=== PATIENT | female | born 1985 | race Caucasian/White ===

== ENCOUNTER 2021-02-15 02:17 | Inpatient (IN) | payer OTHER ==
[2021-02-15] MEDS ORDERED: ELECTROLYTE-148 SOLN 500 ML IV ONE (02:50)
[2021-02-15] MEDS ORDERED: CITRIC ACID/SODIUM CITRATE 30 ML UNIT-DOSE CUP PO ONE ×2 (02:50→04:15)
[2021-02-15] MEDS ORDERED: ELECTROLYTE-148 SOLN 1,000 ML IV SCH ×2 (03:20→04:15)
[2021-02-15 03:25] VITALS: BMI 31.4
[2021-02-15 03:29] LABS: BASO % 0.1 % (0-2.0); EOS % 0.8 % (0-4.5); HEMATOCRIT 29.8 % (32.4-45.2); HEMOGLOBIN 9.6 GM/dL (10.7-15.3); MCH 24.4 pg (25.7-33.7); MCHC 32.4 g/dl (32.0-36.0); MEAN CELL VOLUME 75.2 fl (80-96); MEAN PLT VOLUME 7.9 fl (7.5-11.1); MONO % 4.5 % (3.8-10.2); NEUT % 68.6 % (42.8-82.8); PLATELET COUNT 269 10^3/uL (134-434); RBC 3.95 M/mm3 (3.60-5.2); RDW 13.5 % (11.6-15.6); WHITE BLOOD COUNT 7.9 K/mm3 (4.0-10.0)
[2021-02-15 03:40] LABS: INR 0.93 (0.83-1.09); PROTHROMBIN TIME (PATIENT) 10.9 SEC (9.7-13.0)
[2021-02-15 03:49] LABS: BLOOD UREA NITROGEN 6.2 mg/dL (7-18); CALCIUM 8.5 mg/dL (8.5-10.1)
[2021-02-15 03:52] LABS: CREATININE 0.5 mg/dL (0.55-1.3)
[2021-02-15] MEDS ORDERED: diphenhydrAMINE HCL 25 MG CAPSULE (FP) PO PRN (04:14)
[2021-02-15] MEDS ORDERED: BENZOCAINE 28 GM HEMORRHOIDAL OINTMENT RC PRN (04:14)
[2021-02-15] MEDS ORDERED: ACETAMINOPHEN 325 MG TABLET (FP) PO PRN (04:14)
[2021-02-15] MEDS ORDERED: WITCH HAZEL 50% (TUCKS) 40 PAD/JAR PAD TP PRN (04:14)
[2021-02-15] MEDS ORDERED: BENZOCAINE 20% 57 GM BOTTLE TP PRN (04:14)
[2021-02-15] MEDS ORDERED: oxyCODONE HCL 5 MG TABLET PO PRN (04:14)
[2021-02-15] MEDS ORDERED: METHYLERGONOVINE MALEATE 0.2 MG/1 ML AMP IM PRN (04:14)
[2021-02-15 04:44] LABS: HIV INTERPRETATION NEGATIVE (NEGATIVE)
[2021-02-15] MEDS ORDERED: LIGASURE IMPACT TP ONE (04:55)
[2021-02-15] MEDS ORDERED: morphine SULFATE (PF) 1 MG/2 ML SYRINGE EP ONE (05:26)
[2021-02-15] MEDS ORDERED: ONDANSETRON 4 MG/2 ML VIAL IVPUSH PRN (05:26)
[2021-02-15] MEDS ORDERED: morphine SULFATE (PF) 1 MG/2 ML SYRINGE ONE (05:30)
[2021-02-15] MEDS ORDERED: ceFAZolin SODIUM 1 GM VIAL ONE (05:32)
[2021-02-15] MEDS ORDERED: PHENYLEPHRINE HCL 10 MG/1 ML SINGLE DOSE VIAL ONE (05:44)
[2021-02-15] MEDS ORDERED: OXYTOCIN 10 UNIT/ML 10ML MDV ONE (05:53)
[2021-02-15 06:43] LABS: CORD HCO3 22.7 mmHg (20-29); CORD PCO2 42.9 mmHg (30-78); CORD pH 7.342 (7.14-7.44)
[2021-02-15] MEDS ORDERED: OXYTOCIN 20 UNITS in 0.9% NS 20 UNIT/1,000 ML INFUS.BAG IV ONE (07:26)
[2021-02-15] MEDS ORDERED: IBUPROFEN 800 MG/8 ML IJ IVPB ONE (07:26)
[2021-02-15] MEDS: IBUPROFEN 800 MG/8 ML IJ IVPB PRN ×2 (07:35→22:09)
[2021-02-15 08:27] LABS: POC NITRAZINE POS
[2021-02-15] MEDS ORDERED: AMPICILLIN - 1 GM in SODIUM CHLORIDE 100 ML IVPB SCH (10:47)
[2021-02-15] MEDS ORDERED: OXYTOCIN 20 UNITS in 0.9% NS 20 UNIT/1,000 ML INFUS.BAG IV SCH (14:15)
[2021-02-16] MEDS ORDERED: oxyCODONE HCL 5 MG TABLET PO PRN (04:14)
[2021-02-16] MEDS ORDERED: BISACODYL 10 MG SUPP.RECT PR PRN (04:14)
[2021-02-16] MEDS: IBUPROFEN 600 MG TABLET (FP) PO PRN ×2 (06:01→11:03)
[2021-02-16] MEDS: SIMETHICONE 80 MG TAB.CHEW (FP) PO PRN ×3 (06:02→17:48)
[2021-02-16 06:04] LABS: HEMATOCRIT 30.2 % (32.4-45.2); HEMOGLOBIN 9.6 GM/dL (10.7-15.3); MCH 24.3 pg (25.7-33.7); MCHC 31.8 g/dl (32.0-36.0); MEAN CELL VOLUME 76.2 fl (80-96); MEAN PLT VOLUME 8.1 fl (7.5-11.1); PLATELET COUNT 270 10^3/uL (134-434); RBC 3.96 M/mm3 (3.60-5.2); RDW 13.9 % (11.6-15.6); WHITE BLOOD COUNT 8.7 K/mm3 (4.0-10.0)
[2021-02-16] MEDS ORDERED: FLU VACC QS2021-22(6MOS UP)/PF 60 MCG/0.5 ML SYRINGE IM ONE (10:00)
[2021-02-17] MEDS: SIMETHICONE 80 MG TAB.CHEW (FP) PO PRN (09:09)
[2021-02-17] MEDS: IBUPROFEN 600 MG TABLET (FP) PO PRN ×2 (09:09→13:49)
[2021-02-17] MEDS ORDERED: SENNOSIDES/DOCUSATE COMBO (SENNA PLUS) TABLET (UD) PO PRN (22:00)
[2021-02-18] MEDS: IBUPROFEN 600 MG TABLET (FP) PO PRN ×2 (01:05→09:13)
[2021-02-18] MEDS: SIMETHICONE 80 MG TAB.CHEW (FP) PO PRN ×2 (01:06→09:16)
[2021-02-18 07:56] LABS: HEMATOCRIT 28.3 % (32.4-45.2); HEMOGLOBIN 9.3 GM/dL (10.7-15.3); MCH 24.8 pg (25.7-33.7); MCHC 32.9 g/dl (32.0-36.0); MEAN CELL VOLUME 75.3 fl (80-96); MEAN PLT VOLUME 7.8 fl (7.5-11.1); PLATELET COUNT 285 10^3/uL (134-434); RBC 3.76 M/mm3 (3.60-5.2); RDW 13.4 % (11.6-15.6); WHITE BLOOD COUNT 6.5 K/mm3 (4.0-10.0)
[2021-02-18 10:16] VITALS: BP 108/72; PULSE 71; TEMP 98.2
== END 2021-02-18 12:45 | disposition home or self-care (01) | DRG 540 ==
LOC: JDEL 02:17 → JLDR 02:50 → J3W 15:10
PROVIDERS: ADMIT Obstetrics & Gynecology; ATTEND Obstetrics & Gynecology
PROC: 10D00Z1 Extraction of Products of Conception, Low, Open Approach (ICD-10-PCS; principal; 2021-02-15)
PROC: 0UT70ZZ Resection of Bilateral Fallopian Tubes, Open Approach (ICD-10-PCS; 2021-02-15)
DX: O34.211 Maternal care for low transverse scar from previous cesarean delivery (principal); O99.214 Obesity complicating childbirth; E66.9 Obesity, unspecified; Z3A.39 39 weeks gestation of pregnancy; Z37.0 Single live birth
CPT/HCPCS: 36415; 36600; 80048; 82803; 83986-QW; 85025; 85027; 85610; 85730; 86780; 86850; 86900; 86901; 87389; 88302-TC; 88307-TC; 90686; C9803; G0008; U0003; U0005